=== PATIENT | male | born 1995 | race Caucasian/White ===

== ENCOUNTER 2016-10-22 14:00 | Emergency (ER) | payer OTHER ==
[~2016-10-22] VITALS: Ht 172.7 cm; Wt 105.0 kg
[2016-10-22 14:04] VITALS: BP 167/88; PULSE 98; RESP 17; TEMP 97.8; O2SAT 98
--- NOTE | 2016-10-22 14:22 | PD ---
Physical Exam Time Seen by Provider: 14:20 Narrative 21yo M c/o possible allergic reaction to Niacin. Started Niacin yesterday for high cholesterol. Called pharmacist and was told allergic reaction to Niacin. Had tingling , flushing, and rash onset at approx 1:40 this afternoon. Denies airway edema, SOB, chest pain, abd pain, N/V. Patient stable. Patient seen in triage. Awaiting bed placement. Data Data Last Documented VS Vital Signs Date Time Temp Pulse Resp B/P Pulse Ox O2 Delivery O2 Flow Rate FiO2 10/22/16 14:04 97.8 98 17 167/88 98 MDM Supervised Visit with SUSANA: Joyce Mendosa Oct 22, 2016 14:22
--- NOTE | 2016-10-22 15:45 | PD ---
HPI . niacin reaction Chief Complaint: Allergic/Adverse Reaction Time Seen by Provider: 15:45 Travel History International Travel<30 days: No Contact w/Intl Traveler<30days: No Traveled to known affect area: No History of Present Illness HPI 21-year-old male with history of CVA and hyperlipidemia here accompanied by his family with complaints of possible reaction to niacin. Patient says that he took niacin yesterday for the first time and did not have any serious flushing etc., however he took it today and developed flushing all over his face and entire body. Patient's mom reports that he was very red all over his entire body. They contacted the pharmacist who advised him to come to the emergency department for reaction to niacin. Apparently patient had a CVA and was advised to take a statin, but the family has been trying to find alternative therapies to statin. They decided to try niacin and red yeast rice instead. They did not expect this type of reaction. He denies any facial edema, sob or angioedema. PFSH Past Medical History Cerebrovascular Accident: Yes Social History Tobacco Use: No Allergies-Medications (Allergen,Severity, Reaction): Coded Allergies: Sulfa (Verified Allergy, Intermediate, RASH, 10/22/16) Reported Meds & Prescriptions Reported Meds & Active Scripts Active Reported Gabapentin 100 Mg Cap 200 Mg PO HS Gabapentin 100 Mg Cap 200 Mg PO HS Gabapentin 100 Mg Cap 100 Mg PO BID Lutein 10 Mg Tab 10 Mg PO DAILY Aspirin 81 Mg Chew 81 Mg CHEW DAILY Niacin 100 Mg Tab 100 Mg PO DAILY Review of Systems General / Constitutional: No: Fever Eyes: No: Visual changes HENT: No: Headaches Cardiovascular: No: Chest Pain or Discomfort Respiratory: No: Shortness of Breath Gastrointestinal: No: Abdominal Pain Genitourinary: No: Dysuria Musculoskeletal: No: Pain Skin: Positive Other (body redness), No Rash Neurologic: No: Weakness Psychiatric: No: Depression Endocrine: No: Polydipsia Hematologic/Lymphatic: No: Easy Bruising Physical Exam Narrative GENERAL: AAO x 3, no acute distress, Well-nourished, well-developed patient. SKIN: Warm and dry. No visible rashes or bruising. No redness over her entire body HEAD: Normocephalic and atraumatic. EYES: No scleral icterus. No injection or drainage. EOM intact, PERRLA ENT: No nasal drainage noted. Mucous membranes pink. Airway patent. No posterior pharynx edema. NECK: Supple, trachea midline. No JVD. CARDIOVASCULAR: Regular rate and rhythm without murmurs, gallops, or rubs. RESPIRATORY: Breath sounds equal bilaterally. No accessory muscle use. No rhonchi or rales. GASTROINTESTINAL: Normal visual inspection. EXTREMITIES: No cyanosis or edema. BACK: Nontender without obvious deformity. No CVA tenderness. PSYCH: AAO x 3, normal affect. Data Data Last Documented VS Vital Signs Date Time Temp Pulse Resp B/P Pulse Ox O2 Delivery O2 Flow Rate FiO2 10/22/16 14:04 97.8 98 17 167/88 98 MDM Medical Decision Making Medical Screen Exam Complete: Yes Emergency Medical Condition: Yes Medical Record Reviewed: Yes Differential Diagnosis adverse reaction to niacin, niacin flushing, less likely anaphylaxis Narrative Course 21-year-old male with history of CVA and hyperlipidemia here accompanied by his family with complaints of possible reaction to niacin. Patient says that he took niacin yesterday for the first time and did not have any serious flushing etc., however he took it today and developed flushing all over his face and entire body. Patient's mom reports that he was very red all over his entire body. They contacted the pharmacist who advised him to come to the emergency department for reaction to niacin. Apparently patient had a CVA and was advised to take a statin, but the family has been trying to find alternative therapies to statin. They decided to try niacin and red yeast rice instead. They did not expect this type of reaction. He denies any facial edema, sob or angioedema. patient seen and examined. Unfortunately he has been waiting and family reports that the redness and rash has completely resolved. I've examined the entire body and there is no visible rash or redness. I recommended that he stop niacin until seen by his primary care provider for further recommendations. I've advised them if for any reason this rash or reaction appears again, return to the nearest emergency department. Patient verbalized understanding of instructions, questions were answered, and thanked me for their care. I advised them if their condition worsens, please return to the nearest emergency room for further care. Diagnosis Primary Impression: Adverse reaction to niacin Qualified Code: T46.7X5A - Adverse reaction to niacin, initial encounter Patient Instructions: General Instructions Additional Instructions: Please see your primary care provider in the next 3-5 days. Do not take any niacin until instructed to do so by your primary care provider. Med/Other Pt SpecificInfo: Med Stopped (stop niacin until instructed to resume by PCP ) Disposition: 01 DISCHARGE HOME Condition: Stable Shannan Osei Oct 22, 2016 15:45
[2016-10-22] MEDS ORDERED: GABA100C4 PO ×2 (16:12)
[2016-10-22] MEDS ORDERED: LUTE1TAB PO (16:12)
[2016-10-22] MEDS ORDERED: NIAC100T2 PO (16:12)
[2016-10-22] MEDS ORDERED: ASPI81CH CHEW (16:12)
== END 2016-10-22 16:15 | disposition home or self-care (01) ==
LOC: NEPK 14:00
DX: T46.7X5A Adverse effect of peripheral vasodilators, initial encounter (principal); R21 Rash and other nonspecific skin eruption; Y92.9 Unspecified place or not applicable
CPT/HCPCS: 99283